=== PATIENT | female | born 1995 | race Caucasian/White ===

== ENCOUNTER 2019-09-02 12:10 | Emergency (ER) | payer OTHER ==
[~2019-09-02] VITALS: Ht 165.1 cm; Wt 152.9 kg
[2019-09-02] MEDS ORDERED: DIAZEPAM 2 MG TAB PO ONE (12:45)
[2019-09-02] MEDS ORDERED: KETOROLAC TROMETHAMINE 60 MG/2 ML VIAL IM ONE (12:45)
[2019-09-02 12:55] LABS: CLARITY,URINE CLOUDY (CLEAR); COLOR,URINE YELLOW (YELLOW); LEUKOCYTE ESTERASE ,URINE NEGATIVE (NEGATIVE); NITRITE,URINE NEGATIVE (NEGATIVE); PROTEIN,URINE DIPSTICK NEGATIVE (NEGATIVE)
[2019-09-02 12:56] LABS: BILIRUBIN,URINE NEGATIVE (NEGATIVE); KETONES,URINE NEGATIVE (NEGATIVE); URINE UROBILINOGEN 0.2 mg/dL (0.2 - 1)
[2019-09-02] MEDS ORDERED: DIAZEPAM 5 MG TAB PO ONE (13:00)
[2019-09-02 13:01] LABS: BACTERIA,URINE MANY /HPF; EPITHELIAL CELLS,URINE FEW /LPF; RBC,URINE >50 /HPF (0-5)
[2019-09-02] MEDS ORDERED: CEFTRIAXONE SOD 1 GM VIAL IM ONE (13:30)
--- NOTE | 2019-09-02 13:34 | Emergency Department Note ---
History of Present Illnes History of Present Illness Chief Complaint: Back Pain History of Present Illness This is a 24 year old female . Historian: Patient Arrival Mode: Car Onset (how long ago): day(s) (s days ) Location: lower back Quality: mod Radiation: extremity Severity: moderate Onset quality: gradual Duration (how long): day(s) (2 days) Progression: unchanged Context: recent illness, recent surgery, recent immobilization, recent travel, trauma/injury, new medications, hx of DVT/PE, non-compliance w/ medications, other Relieving factors: none Exacerbating factors: none Treatments prior to arrival: none Past Medical/Family History Physician Review I have reviewed the patient's past medical and family history. Any updates have been documented here. Past Medical History Recent Fever: No Clinical Suspicion of Infectio: No New/Unexplained Change in Ment: No Past Medical History: None Past Surgical History: None Social History Smoking Cessation: Never Smoker Counseling Performed: No Alcohol Use: None Any Illegal Drug Use: No TB Exposure/Symptoms: No Physically hurt or threatened: No Other Any Pre-Existing Lines (PICC,: No Is patient up to date on immun: No Last Flu: unk Last Pneumovax: unk Review of Systems Review of Systems Constitutional: no symptoms EENTM: no symptoms Cardiovascular: no symptoms Respiratory: no symptoms Gastrointestinal: no symptoms Genitourinary: no symptoms Musculoskeletal: back pain Neurological: no symptoms Psychological: no symptoms Endocrine: no symptoms Hematological/Lymphatic: no symptoms Review of other systems All other systems reviewed and negative. Physical Exam Related Data Allergies: Coded Allergies: No Known Allergies (Unverified , 09/02/19) Triage Vital Signs Vital Signs Date Time Temp Pulse Resp B/P (MAP) Pulse Ox O2 Delivery O2 Flow Rate FiO2 09/02/19 12:27 97.2 95 16 156/97 97 Vital Signs Date Time Temp Pulse Resp B/P (MAP) Pulse Ox O2 Delivery O2 Flow Rate FiO2 09/02/19 12:27 97.2 95 16 156/97 97 Vital signs reviewed: Yes Physical Exam CONSTITUTIONAL Constitutional: well-developed, well-nourished, obese HENT HENT: normocephalic, atraumatic, oropharynx clear/moist, nose normal HENT L/R: left ext ear normal, right ext ear normal EYES Eyes: PERRL, conjunctivae normal NECK Neck: ROM normal PULMONARY Pulmonary: effort normal, breath sounds normal CARDIOVASCULAR Cardiovascular: regular rhythm, heart sounds normal, capillary refill normal, normal rate GASTROINTESTINAL Abdominal: soft, nontender, bowel sounds normal GENITOURINARY Genitourinary: exam deferred SKIN Skin: warm, dry MUSCULOSKELETAL Musculoskeletal: tenderness (mid lower back ); deformity, swelling NEUROLOGICAL Neurological: alert, oriented x 3, no gross motor or sensory deficits PSYCHOLOGICAL Psychological: mood/affect normal, judgement normal Exam - additional comments pt amb w/o diff no limited rom noted denies saddle paraesthesia denies diff w/ bowel or bladder function Results Laboratory Laboratory Laboratory Tests Test 09/02/19 12:33 Urine Color Yellow (YELLOW) Urine Clarity Cloudy (CLEAR) Urine pH 6 (5 - 7) Urine Specific [place] >=1.030 (1.010-1.025) Urine Protein Negative (NEGATIVE) Urine Glucose (UA) Negative (NEGATIVE) Urine Ketones Negative (NEGATIVE) Urine Blood Large (NEGATIVE) Urine Nitrite Negative (NEGATIVE) Urine Bilirubin Negative (NEGATIVE) Urine Urobilinogen 0.2 mg/dL (0.2 - 1) Urine Leukocyte Esterase Negative (NEGATIVE) Urine RBC >50 /HPF (0-5) Urine WBC 11-20 /HPF (0-5) Urine Epithelial Cells Few /LPF (NONE) Urine Bacteria Many /HPF (NONE) Urine Test Negative (NEGATIVE) Laboratory Tests Test 09/02/19 12:33 Urine Color Yellow (YELLOW) Urine Clarity Cloudy (CLEAR) Urine pH 6 (5 - 7) Urine Specific [place] >=1.030 (1.010-1.025) Urine Protein Negative (NEGATIVE) Urine Glucose (UA) Negative (NEGATIVE) Urine Ketones Negative (NEGATIVE) Urine Blood Large (NEGATIVE) Urine Nitrite Negative (NEGATIVE) Urine Bilirubin Negative (NEGATIVE) Urine Urobilinogen 0.2 mg/dL (0.2 - 1) Urine Leukocyte Esterase Negative (NEGATIVE) Urine RBC >50 /HPF (0-5) Urine WBC 11-20 /HPF (0-5) Urine Epithelial Cells Few /LPF (NONE) Urine Bacteria Many /HPF (NONE) Urine Test Negative (NEGATIVE) Lab results reviewed: Yes Imaging Impressions Procedure: [id number] DX/SP LUMBAR AP & LATERAL 2-3VWS Exam Date: 09/02/19 Exam Time: 1345 REPORT STATUS: Signed EXAMINATION: Lumbar spine series. CLINICAL HISTORY: Back pain COMPARISON: None. DISCUSSION: 3 views of the lumbar spine are submitted for interpretation. Five nonrib-bearing lumbar type vertebral bodies are identified. No acute, displaced fractures or subluxation. Questionable grade 1 anterolisthesis of S1 on L5 versus positioning. No spondylolysis is noted. Intervertebral disk spaces are preserved. Vertebral body heights are preserved. Sacroiliac joints are unremarkable. Soft tissues have a normal appearance. IMPRESSION: 1. No acute abnormalities. 2. Questionable grade 1 anterolisthesis of S1 on L5 versus positioning. No spondylolisthesis is noted. The staff physician below has personally reviewed this exam on the date of dictation. Signed by: Dr. Jennifer De La Garza M.D. on 09/02/2019 2:24 PM Dictated By: JENNIFER DE LA GARZA MD Transcribed By: JAZMIN on 09/02/19 1424 Critical Care Time Subsequent provider I assumed direction of critical care for this patient from another provider of my specialty. Assessment & Plan Reassessment Reassessment time: 13:34 Reassessment 24y f presented to ed c/o mid lower back pain x 2 days after lifting -pt amb w/o diff no limited rom noted denies saddle paraesthesia denies diff w/ bowel or bladder function - discussed plan of care w/ Dr Yo - lab rad ordered pt medicated w/ toradol valium - pt medicated w/ rocephin for uti per ua Assessment & Plan Final Impression: (1) UTI (urinary tract infection) (2) Back pain (3) Muscle strain Assessment & Plan Dr Yo in eval pt status discussed rad/lab results plan of care and f/u instructions pt amb nad Depart Disposition: HOME, SELF-CARE Last Vital Signs Date Time Temp Pulse Resp B/P (MAP) Pulse Ox O2 Delivery O2 Flow Rate FiO2 09/02/19 12:27 97.2 95 16 156/97 97 Medications in the ED Ketorolac Tromethamine 60 mg ONCE ONCE IM ; Start 09/02/19 at 12:45; Stop 09/02/19 at 12:46 Diazepam 10 mg ONCE ONCE PO ; Start 09/02/19 at 12:45; Stop 09/02/19 at 12:51; Status DC Diazepam 10 mg ONCE ONCE PO ; Start 09/02/19 at 13:00; Stop 09/02/19 at 13:01 Ceftriaxone Sodium 1 gm ONCE ONCE IM ; Start 09/02/19 at 13:30; Stop 09/02/19 at 13:31 PAGE LUI NP September 02, 2019 13:33
--- NOTE | 2019-09-02 14:28 | Diagnostic Imaging Report ---
EXAMINATION: Lumbar spine series. CLINICAL HISTORY: Back pain COMPARISON: None. DISCUSSION: 3 views of the lumbar spine are submitted for interpretation. Five nonrib-bearing lumbar type vertebral bodies are identified. No acute, displaced fractures or subluxation. Questionable grade 1 anterolisthesis of S1 on L5 versus positioning. No spondylolysis is noted. Intervertebral disk spaces are preserved. Vertebral body heights are preserved. Sacroiliac joints are unremarkable. Soft tissues have a normal appearance. IMPRESSION: 1. No acute abnormalities. 2. Questionable grade 1 anterolisthesis of S1 on L5 versus positioning. No spondylolisthesis is noted. The staff physician below has personally reviewed this exam on the date of dictation. Signed by: Dr. Coy Perkins M.D. on 09/02/2019 2:24 PM
== END 2019-09-02 14:58 | disposition home or self-care (01) ==
LOC: ER 12:10
DX: S39.012A Strain of muscle, fascia and tendon of lower back, initial encounter (principal); N39.0 Urinary tract infection, site not specified
CPT/HCPCS: 72100; 81001; 81025; 99283; J0696; J1885